=== PATIENT | male | born 1960 ===

== ENCOUNTER → 2024-12-10 06:27 | Outpatient (REF) | payer MEDICARE, OTHER, SELFPAY | LOC: SDSPAT 06:27 | PROVIDERS: ATTENDING PHYSICIAN Surgery; FAMILY PHYSICIAN Internal Medicine | DX: K40.90 Unilateral inguinal hernia, without obstruction or gangrene, not specified as recurrent (principal); Z01.818 Encounter for other preprocedural examination | CPT/HCPCS: 36415; 93005 ==

== ENCOUNTER 2024-12-24 06:20 | Day surgery (SDC) | payer MEDICARE, OTHER, SELFPAY ==
[2024-12-10 13:54] VITALS: BMI 29.4
[2024-12-24] VITALS (10 sets, daily range): BP systolic 105–139; BP diastolic 62–81; BMI 29.4
[2024-12-24] MEDS: TYLENOL 1000 MG PO (09:52)
[2024-12-24] MEDS: NORMOSOL-R/PLASMALYTE-A 1000 IV (09:59)
--- NOTE | 2024-12-24 10:45 | W.SUR.PREOP ---
Pre-Operative Surgical Note
-
I have examined this patient prior to the performance of the scheduled procedure.
The patient's condition is unchanged from the time of the current History and
Physical and the patient is able to undergo the scheduled procedure.
--- NOTE | 2024-12-24 10:45 | HP.FOC2 ---
Focused History & Physical
Chief Complaint
HPI:
Chief Complaint: Right inguinal hernia
HPI / Indication for Planned Procedure: This is a 64-year-old male with a symptomatic right inguinal hernia. Will plan for robotic right inguinal hernia repair with mesh.
Relevant Past Medical History: Negative
Relevant Social History: Negative
Relevant Family History: Negative
Relevant Past Surgical History: Negative
Review of Systems
Review of Pertinent Systems: All Systems Negative
Medication
See Medication form for detailed medications: Yes
Medication List (including Herbals & OTC):
Super Beets Heart Gummies 1 gum PO BID 12/17/24
magnesium citrate 1 tab PO BID 12/17/24
multivitamin with minerals-folic acid 200 mcg chewable tablet (Multivitamin Gummies) 1 tab PO DAILY 12/17/24
omeprazole 40 mg capsule,delayed release 40 mg PO DAILY 12/17/24
Medications Reviewed: Yes
Allergies and Reactions
Patient has Allergies: No
Noted Allergies and Reactions:
Allergy/AdvReac Type Severity Reaction Status Date / Time
No Known Allergies Allergy Verified 12/24/24 09:47
Pertinent Physical Exam
All Other Systems: Negative
Head/Neck: Normal
Diagnosis / Assessment
This is a 64-year-old male with a symptomatic right inguinal hernia.
Plan / Procedure
Will plan for robotic right inguinal hernia repair with mesh.
Anesthesia/Sedation to be done by Anesthesia Provider: Yes
--- NOTE | 2024-12-24 12:26 | W.IMMPOSTOP ---
Surgical Immed Post Op Note
-
Primary Surgeon: Marc Dill MD
Assisting Surgeon: None
Pre-op Diagnosis: Right inguinal hernia
Post-op Diagnosis: Same
Procedure Performed:
1. Robotic right inguinal hernia repair with mesh
2. Excision of a spermatic cord lipoma
Anesthesia Type: General
Specimen / Cultures: Right inguinal cord lipoma
Estimated Blood Loss: 3 cc
Complications: None
Operative Findings: Moderate-sized indirect right inguinal hernia containing a fairly large right cord lipoma. After achieving the critical view of the MPO the space was reinforced with a large right Bard 3D max mid weight uncoated polypropylene
mesh.
--- NOTE | 2024-12-24 12:27 | OR.RPT ---
Operative Report
Operative Report
Patient Name: Zachariah Jain
: 1960
Date of Operation: 12/24/2024
Preoperative Diagnosis: Right inguinal hernia
Postoperative Diagnosis: Same
Procedure(s):
1. Robotic Inguinal Hernia Repair with mesh, (DOROTHEA approach)
2. Excision of lesion of a spermatic cord lipoma ([id number])
Surgeon(s):
Dr. Dill
Diplomatic Interpreter/Translator(s):
SATINDER Marcial
Anesthesia: General
Estimated Blood Loss: 3 cc
Urine Output: None
Drains/Lines/Implants: Large 3D Max Bard mid weight uncoated polypropylene mesh
Specimens: None
Indication for surgery: The patient has a history of groin pain and noted on exam to have a right inguinal Hernia(s). Following review of therapeutic options they have elected to undergo a minimally invasive repair.
Findings at the time of surgery:
Patient had a moderate-sized right indirect inguinal Hernia, with a fairly large cord lipoma. The MPO was reinforced with a large BARD 3D max mid-weight mesh
Details of the operation:
The patient was brought to the Operating Room and placed in the supine position with the arms tucked. IV antibiotics were infused and Venodyne stockings placed. Following uneventful induction of general endotracheal anesthesia, an orogastric tube
was placed. The abdomen was prepped and draped in the usual sterile fashion. The abdomen was entered using a Veress technique which required 1 pass(es), pneumoperitoneum to 15 mmHg was obtained without difficulty. An 8mm trochar was passed through
the abdominal wall roughly 20 cm cephalad to the inguinal canal. We then confirmed that no inadvertent injury was made while passing the trocar or Veress needle. We then placed two additional 8 mm ports in the left upper and right upper quadrants.
We then docked the robot with a Prograsper in the left hand port and monopolar scissors in the right. An indirect inguinal hernia was identified, no defect noted on the left. We then began by creating a flap at the level of the ASIS laterally
working our way medially to the medial umbilical fold. Staying onto the peritoneum we were able to circumferentially dissect around the hernia sac and and peel it off of the underlying spermatic cord and testicular vessels, taking care to preserve
them. Medially we identified the midline pubis as well as Delano's ligament and ensured to dissect 2 cm below the pubic rim over the bladder. After exposure of the entire myopectineal orifice we identified and reduced: A medium sized indirect
inguinal hernia, no direct inguinal hernia, no femoral hernia, a medium cord lipoma, which was removed
We then fixated a large 3D max mesh with a 2-0 Vicryl stitch at coopers medially and superior laterally. The flap was then closed with a running 2-0 barbed monocryl suture ensuring that the tail was cut flush with the medial fat pad so that no
barbs were exposed. During the closure of the flap a suction cannula was inserted and 20 cc of quarter percent Marcaine was instilled. The area in the flap cavity was then evacuated of air confirming that the mesh was flush and there were no
folds.. All needles and instruments were then removed and the robot was undocked. The abdomen was then desufflated, and pneumoperitoneum evacuated. All skin sites were then closed with 4-0 Monocryl followed by Dermabond. Counts were correct and
overall, the patient tolerated the procedure well and was taken to the Recovery Room postoperatively in stable condition.
I was the attending physician and performed the procedure with assistance of the PA above. The assistance of SATINDER Marcial was required due to the complexity of the procedure. During the procedure Norma assisted with port placement, instrument
and needle exchanges, and closure of the wound. I was present for all portions of the case, excluding skin closure.
Marc Dill MD
[2024-12-24] MEDS: ZOFRAN 4 MG IV (14:41)
== END 2024-12-24 15:32 | disposition home or self-care (01) ==
LOC: SDS 06:20
PROVIDERS: ATTENDING PHYSICIAN Surgery; FAMILY PHYSICIAN Internal Medicine
DX: K40.90 Unilateral inguinal hernia, without obstruction or gangrene, not specified as recurrent (principal)
CPT/HCPCS: 49650; 88304